=== PATIENT | female | born 1960 | race Caucasian/White ===

== ENCOUNTER 2016-05-04 10:42 | Inpatient (IN) | payer OTHER ==
[~2016-05-04] VITALS: Ht 157.5 cm; Wt 81.6 kg
[2016-05-04] MEDS ORDERED: LIDO:MAALOX:DONNATAL 1:1:1 15 ML SINGLE DOSE SWSW ONE (11:15)
[2016-05-04] MEDS ORDERED: PROCHLORPERAZINE 10 MG/2 ML VIAL. IV ONE (11:15)
[2016-05-04 11:41] LABS: BASO % 0 % (0-3); EOS % 1 % (0-3); HEMOGLOBIN 14.6 g/dL (12.0-15.5); LYMPH # 1.9 x10^3/uL (1.0-4.8); LYMPH % 22 % (24-48); MEAN CORPUSCULAR HEMOGLOBIN 30 pg (25-35); MEAN CORPUSCULAR HGB CONC 34 g/dL (31-37); MEAN CORPUSCULAR VOLUME 90 fL (79-100); MONO % 6 % (0-9); NEUT % 71 % (31-73); PLATELET COUNT 236 x10^3/uL (140-400); RED BLOOD COUNT 4.79 x10^6/uL (3.50-5.40); RED CELL DISTRIBUTION WIDTH 13.4 % (11.5-14.5); WHITE BLOOD COUNT 8.7 x10^3/uL (4.0-11.0)
[2016-05-04 11:42] LABS: BILIRUBIN,URINE NEGATIVE (NEG); GLUCOSE,URINE NEGATIVE (NEG); NITRITE,URINE NEGATIVE (NEG); PROTEIN,URINE NEGATIVE (NEG-TRACE); UROBILINOGEN,URINE 0.2 mg/dL (0.2 mg/dL)
[2016-05-04 11:48] LABS: CALCIUM 9.4 mg/dL (8.5-10.1); GFR 57.1; POTASSIUM 4.4 mmol/L (3.5-5.1)
[2016-05-04] MEDS: FENTANYL PF 100 MCG/2 ML VIAL. IV PRN ×3 (11:50→15:20)
[2016-05-04 12:00] LABS: ALBUMIN 3.9 g/dL (3.4-5.0); ALBUMIN/GLOBULIN RATIO 1.2 (1.0-1.7); BACTERIA,URINE FEW /HPF (0-FEW); SQUAMOUS EPITHELIAL CELL,UR FEW /LPF; TOTAL BILIRUBIN 0.5 mg/dL (0.2-1.0); TOTAL PROTEIN 7.1 g/dL (6.4-8.2)
[2016-05-04] MEDS ORDERED: IOHEXOL 300 MG/ML 75 ML VIAL IV ONE (12:00)
[2016-05-04] MEDS ORDERED: CONTRAST GIVEN MC PRN (12:15)
--- NOTE | 2016-05-04 12:42 | PHYS DOC ---
Past Medical History Past Medical History: Anxiety, Depression Past Surgical History: , Tubal ligation Additional Information: Nonsmoker Alcohol Use: Occasionally Drug Use: None Adult General Chief Complaint Chief Complaint: ABDOMINAL PAIN HPI HPI Patient is a 56 year old female who presents with epigastric and right upper quadrant pain for 12 days. She reports that she initially had diarrhea with light stools, approximately 6 episodes a day. She has not had the diarrhea for 3 days now. She continues to have nausea without vomiting and low-grade fever with chills. She has seen her PCP twice for the pain. She had an ultrasound of the right upper quadrant and labs drawn 4 days ago. She reports that there were no abnormalities found on these tests. Her doctor recommended starting her on Zantac for acid reflux. She states that she had mild, temporary relief after starting the Zantac. Is no longer helpful. She saw her PCP again yesterday and he recommended Prilosec OTC. She has taken this with very little relief. She also has oxycodone at home, which does not improve her pain. She reports that she has temporary relief of her pain after eating, usually within an hour, but the pain always returns. She denies any chest pain, shortness breath, or urinary symptoms. Her PCP is Dr. Cross. She does not have a GI specialist. Review of Systems Review of Systems Constitutional: Reports low-grade fever and chills. Eyes: Denies change in visual acuity, redness, or eye pain. [] HENT: Denies ear pain, nasal congestion or sore throat. [] Respiratory: Denies cough or shortness of breath. [] Cardiovascular: Denies chest pain, palpitations or edema. [] GI: Denies vomiting, bloody stools or diarrhea (resolved). Reports abdominal pain and nausea. : Denies dysuria, hematuria or urinary frequency. [] Musculoskeletal: Denies back pain or joint pain. [] Integument: Denies rash or skin lesions. [] Neurologic: Denies headache, focal weakness or sensory changes. [] Endocrine: Denies polyuria or polydipsia. [] Psych: Denies anxiety or depression. [] All systems reviewed and negative unless otherwise stated in the HPI. Current Medications Current Medications Current Medications Medications (Trade) Dose Ordered Sig/Katty Start Time Stop Time Status Last Admin Dose Admin Fentanyl Citrate (Fentanyl 2ml Vial) 50 mcg PRN Q15MIN PRN 05/04/16 11:15 05/05/16 11:14 05/04/16 15:20 50 MCG Info (Do NOT chart on this entry -- for MONITORING) 1 each PRN DAILY PRN 05/04/16 12:15 05/06/16 12:14 Iohexol (Omnipaque 300 Mg/ml) 75 ml 1X ONCE 05/04/16 12:00 05/04/16 12:03 DC 05/04/16 12:00 75 ML Multi-Ingredient Mouthwash/Gargle (Gi Cocktail Single Dose) 15 ml 1X ONCE 05/04/16 11:15 05/04/16 11:20 DC 05/04/16 11:50 15 ML Prochlorperazine Edisylate (Compazine) 5 mg 1X ONCE 05/04/16 11:15 05/04/16 11:20 DC 05/04/16 11:50 5 MG Allergies Allergies Allergies Coded Allergies Type Severity Reaction Last Updated Verified No Known Drug Allergies 05/04/16 No Physical Exam Physical Exam Constitutional: Well developed, well nourished, no acute distress, non-toxic appearance. [] HENT: Normocephalic, atraumatic, oropharynx moist. [] Eyes: PERRLA, EOMI, conjunctiva normal, no discharge. [] Neck: Normal range of motion, no tenderness, supple, no stridor. [] Cardiovascular: Heart rate regular rhythm, no murmur. [] Lungs & Thorax: Bilateral breath sounds clear to auscultation without wheezes, rales, or rhonchi. [] Abdomen: Bowel sounds normal, soft, epigastric and right upper quadrant tenderness, no masses, no pulsatile masses. [] Skin: Warm, dry, no erythema, no rash. [] Back: No midline tenderness, no CVA tenderness. [] Extremities: No tenderness, ROM intact, no edema. Distal pulses equal bilaterally. [] Neurologic: Alert and oriented X 3, normal motor function, normal sensory function, no focal deficits noted. [] Psychologic: Affect normal, judgement normal, mood normal. [] Current Patient Data Vital Signs Vital Signs Date Time Temp Pulse Resp B/P Pulse Ox O2 Delivery O2 Flow Rate FiO2 05/04/16 10:50 98.0 68 18 144/79 97 Room Air 98.0 Lab Values Laboratory Tests Test 05/04/16 11:25 05/04/16 11:30 Urine Opiates Screen Neg (NEG) Urine Methadone Screen Neg (NEG) Urine Barbiturates Neg (NEG) Urine Phencyclidine Screen Neg (NEG) Urine Amphetamine/Methamphetamine Neg (NEG) Urine Benzodiazepines Screen Neg (NEG) Urine Cocaine Screen Neg (NEG) Urine Cannabinoids Screen Neg (NEG) Urine Ethyl Alcohol Neg (NEG) White Blood Count 8.7x10^3/uL (4.0-11.0) Red Blood Count 4.79x10^6/uL (3.50-5.40) Hemoglobin 14.6g/dL (12.0-15.5) Hematocrit 43.0% (36.0-47.0) Mean Corpuscular Volume 90fL (79-100) Mean Corpuscular Hemoglobin 30pg (25-35) Mean Corpuscular Hemoglobin Concent 34g/dL (31-37) Red Cell Distribution Width 13.4% (11.5-14.5) Platelet Count 236x10^3/uL (140-400) Neutrophils (%) (Auto) 71% (31-73) Lymphocytes (%) (Auto) 22% (24-48) L Monocytes (%) (Auto) 6% (0-9) Eosinophils (%) (Auto) 1% (0-3) Basophils (%) (Auto) 0% (0-3) Neutrophils # (Auto) 6.2x10^3uL (1.8-7.7) Lymphocytes # (Auto) 1.9x10^3/uL (1.0-4.8) Monocytes # (Auto) 0.5x10^3/uL (0.0-1.1) Eosinophils # (Auto) 0.1x10^3/uL (0.0-0.7) Basophils # (Auto) 0.0x10^3/uL (0.0-0.2) Urine Collection Type Unknown Urine Color Yellow Urine Clarity Clear Urine pH 8.0 Urine Specific [place] 1.025 Urine Protein Negativemg/dL (NEG-TRACE) Urine Glucose (UA) Negativemg/dL (NEG) Urine Ketones (Stick) Tracemg/dL (NEG) Urine Blood Negative (NEG) Urine Nitrite Negative (NEG) Urine Bilirubin Negative (NEG) Urine Urobilinogen Dipstick 0.2mg/dL (0.2 mg/dL) Urine Leukocyte Esterase Negative (NEG) Urine RBC 3-5/HPF (0-2) Urine WBC 1-4/HPF (0-4) Urine Squamous Epithelial Cells Few/LPF Urine Bacteria Few/HPF (0-FEW) Urine Mucus Marked/LPF Sodium Level 140mmol/L (136-145) Potassium Level 4.4mmol/L (3.5-5.1) Chloride Level 105mmol/L (98-107) Carbon Dioxide Level 27mmol/L (21-32) Anion Gap 8 (6-14) Blood Urea Nitrogen 16mg/dL (7-20) Creatinine 1.0mg/dL (0.6-1.0) Estimated GFR (Cockcroft-Gault) 57.1 BUN/Creatinine Ratio 16 (6-20) Glucose Level 104mg/dL (70-99) H Calcium Level 9.4mg/dL (8.5-10.1) Total Bilirubin 0.5mg/dL (0.2-1.0) Aspartate Amino Transferase (AST) 17U/L (15-37) Alanine Aminotransferase (ALT) 34U/L (14-59) Alkaline Phosphatase 87U/L (46-116) Total Protein 7.1g/dL (6.4-8.2) Albumin 3.9g/dL (3.4-5.0) Albumin/Globulin Ratio 1.2 (1.0-1.7) Lipase 299U/L (73-393) Laboratory Tests 05/04/16 11:30 Laboratory Tests 05/04/16 11:30 EKG EKG [] Radiology/Procedures Radiology/Procedures REASON: ruq and epigastric pain PROCEDURE: ABD PELV W/ IV CONTRAST ONLY EXAM: CT abdomen/pelvis with contrast. HISTORY: Abdominal pain. TECHNIQUE: Computed tomography of the abdomen and pelvis was performed after the intravenous administration of 75 mL Omnipaque 300. COMPARISON: None. FINDINGS: Lung windows through the visualized portions of the bases reveal no abnormality. Bone windows reveal no suspicious lesions. Hypoattenuation of the hepatic parenchyma indicates at least moderate diffuse hepatic steatosis. There is focal effacement adjacent to the gallbladder fossa. There is a small 1 cm benign cyst laterally along the left kidney. The spleen, adrenal glands, pancreas and gallbladder are unremarkable. There are no pathologically enlarged lymph nodes. There is a partially calcified fibroid along the right aspect of the uterine fundus that measures 1.9 cm. A small umbilical hernia contains only fat. The appendix is not inflamed. There is no obstruction. IMPRESSION: 1. At least moderate diffuse hepatic steatosis. Correlate for hepatic inflammation as a cause of pain. 2. 1.9 cm partially calcified uterine fibroid. 3. Small umbilical hernia containing only fat. Course & Med Decision Making Course & Med Decision Making Pertinent Labs and Imaging studies reviewed. (See chart for details) The patient is a 56-year-old female who presents with 12 days of right upper quadrant and epigastric pain. She has had some outpatient testing done without definitive results. On exam, her abdomen is soft and nonsurgical with epigastric and right upper quadrant tenderness. There are no significant laboratory abnormalities. CT of the abdomen and pelvis shows hepatic steatosis, uterine fibroid, and small umbilical fat-containing hernia. None of these would explain her current pain. The patient's pain improved from 7/10 to 5/10 after GI cocktail and IV fentanyl. She states that she lives alone and is unable to tolerate her pain at this level. She states "I can't go home like this." Patient is admitted to the hospital for intractable abdominal pain under the hospitalist service by Dr. Franklin. She remained stable while in the emergency department. Dragon Disclaimer Dragon Disclaimer This electronic medical record was generated, in whole or in part, using a voice recognition dictation system. Departure Departure Impression: Primary Impression: Intractable abdominal pain Disposition: ADMITTED INPATIENT Admitting Physician: Yulisa Franklin Condition: STABLE Referrals: NIRAJ MICHAEL (PCP) COCO LEMONS May 04, 2016 12:42
--- NOTE | 2016-05-04 13:11 | RAD ---
EXAM: CT abdomen/pelvis with contrast. HISTORY: Abdominal pain. TECHNIQUE: Computed tomography of the abdomen and pelvis was performed after the intravenous administration of 75 mL Omnipaque 300. COMPARISON: None. FINDINGS: Lung windows through the visualized portions of the bases reveal no abnormality. Bone windows reveal no suspicious lesions. Hypoattenuation of the hepatic parenchyma indicates at least moderate diffuse hepatic steatosis. There is focal effacement adjacent to the gallbladder fossa. There is a small 1 cm benign cyst laterally along the left kidney. The spleen, adrenal glands, pancreas and gallbladder are unremarkable. There are no pathologically enlarged lymph nodes. There is a partially calcified fibroid along the right aspect of the uterine fundus that measures 1.9 cm. A small umbilical hernia contains only fat. The appendix is not inflamed. There is no obstruction. IMPRESSION: 1. At least moderate diffuse hepatic steatosis. Correlate for hepatic inflammation as a cause of pain. 2. 1.9 cm partially calcified uterine fibroid. 3. Small umbilical hernia containing only fat. *One or more of the following individualized dose reduction techniques were utilized for this examination: 1. Automated exposure control. 2. Adjustment of the mA and/or kV according to patient size. 3. Use of iterative reconstruction technique.
[2016-05-04 14:44] LABS: BARBITURATES NEG (NEG); BENZODIAZEPINES NEG (NEG); CANNABINOIDS NEG (NEG); COCAINE NEG (NEG); ETHANOL, URINE NEG (NEG); METHADONE NEG (NEG); OPIATES NEG (NEG); PHENCYCLIDINE NEG (NEG)
[2016-05-04] MEDS ORDERED: ONDANSETRON PF 4 MG/2 ML VIAL. IV PRN ×2 (15:00→15:15)
[2016-05-04] MEDS ORDERED: ACETAMINOPHEN 325 MG TABLET. PO PRN (15:15)
[2016-05-04] MEDS ORDERED: IV NORMAL SALINE 1000ML BAG 1,000 ML IV ONE (15:15)
--- NOTE | 2016-05-04 15:16 | PDOC1 ---
History and Physical Date of Admission Date of Admission 05/04/16 Identification/Chief Complaint Chief Complaint abd pain Problems: Source Source: Chart review, Patient History of Present Illness History of Present Illness 56yo F, no PMH except depression, comes for abd pain for 2 weeks. Pt takes aleeve 5 times per week for headache. She started to have N/V, epigastric and RUQ pain, constant, 8/10, no radiation. diarrhea watery, resolved for 3 days. no N/V now. low T 99, + chills. THE Pain is not better, fu with PCP , got some tests (not sure what are they, but was told US abd neg), took omeprozale for [address] here neg. Past Medical History Past Medical History depression Past Surgical History Past Surgical History: No pertinent history Family History Family History grandmother has gastric ulcer Social History Smoke: No ALCOHOL: social Drugs: None Current Problem List Problem List Problems Medical Problems: (1) Intractable abdominal pain Status: Acute Current Medications Current Medications Current Medications Medications (Trade) Dose Ordered Sig/Katty Start Time Stop Time Status Last Admin Dose Admin Fentanyl Citrate (Fentanyl 2ml Vial) 50 mcg PRN Q15MIN PRN 05/04/16 11:15 05/05/16 11:14 05/04/16 14:24 50 MCG Info (Do NOT chart on this entry -- for MONITORING) 1 each PRN DAILY PRN 05/04/16 12:15 05/06/16 12:14 Iohexol (Omnipaque 300 Mg/ml) 75 ml 1X ONCE 05/04/16 12:00 05/04/16 12:03 DC 05/04/16 12:00 75 ML Morphine Sulfate 4 mg PRN Q2HR PRN 05/04/16 15:00 05/05/16 14:59 UNV Multi-Ingredient Mouthwash/Gargle (Gi Cocktail Single Dose) 15 ml 1X ONCE 05/04/16 11:15 05/04/16 11:20 DC 05/04/16 11:50 15 ML Ondansetron HCl (Zofran) 4 mg PRN Q8HRS PRN 05/04/16 15:00 05/05/16 14:59 UNV Prochlorperazine Edisylate (Compazine) 5 mg 1X ONCE 05/04/16 11:15 05/04/16 11:20 DC 05/04/16 11:50 5 MG Allergies Allergies Allergies Coded Allergies Type Severity Reaction Last Updated Verified No Known Drug Allergies 05/04/16 No ROS Review of System CONSTITUTIONAL: No fever or chills EYES: No recent changes SKIN: No rash or itching CARDIOVASCULAR: No chest pain, syncope, palpitations, or edema RESPIRATORY: No SOB or cough GASTROINTESTINAL: No nausea, vomiting or abdominal pain NEUROLOGICAL: No headaches or weakness ENDOCRINE: No cold or heat intolerance GENITOURINARY: No urgency or frequency of urination MUSCULOSKELETAL: No back pain or joint pain LYMPHATICS: No enlarged lymph nodes PSYCHIATRIC: No anxiety or depression Physical Exam Physical Exam GEN.: No apparent distress. Alert and oriented. HEENT: Head is normocephalic, atraumatic NECK: Supple. LUNGS: Clear to auscultation. HEART: RRR, S1, S2 present. Peripheral pulses intact ABDOMEN: Soft, Positive bowel sounds. RUQ , epigastric area + tenderness EXTREMITIES: Without any cyanosis. NEUROLOGIC: Normal speech, normal tone PSYCHIATRIC: Normal affect, normal mood. SKIN: No ulcerations Vitals Vitals Vital Signs Date Time Temp Pulse Resp B/P Pulse Ox O2 Delivery O2 Flow Rate FiO2 05/04/16 14:28 74 18 141/74 98 Room Air 05/04/16 10:50 98.0 98.0 Labs Labs Laboratory Tests Test 05/04/16 11:25 05/04/16 11:30 Urine Opiates Screen Neg (NEG) Urine Methadone Screen Neg (NEG) Urine Barbiturates Neg (NEG) Urine Phencyclidine Screen Neg (NEG) Urine Amphetamine/Methamphetamine Neg (NEG) Urine Benzodiazepines Screen Neg (NEG) Urine Cocaine Screen Neg (NEG) Urine Cannabinoids Screen Neg (NEG) Urine Ethyl Alcohol Neg (NEG) White Blood Count 8.7x10^3/uL (4.0-11.0) Red Blood Count 4.79x10^6/uL (3.50-5.40) Hemoglobin 14.6g/dL (12.0-15.5) Hematocrit 43.0% (36.0-47.0) Mean Corpuscular Volume 90fL (79-100) Mean Corpuscular Hemoglobin 30pg (25-35) Mean Corpuscular Hemoglobin Concent 34g/dL (31-37) Red Cell Distribution Width 13.4% (11.5-14.5) Platelet Count 236x10^3/uL (140-400) Neutrophils (%) (Auto) 71% (31-73) Lymphocytes (%) (Auto) 22% (24-48) Monocytes (%) (Auto) 6% (0-9) Eosinophils (%) (Auto) 1% (0-3) Basophils (%) (Auto) 0% (0-3) Neutrophils # (Auto) 6.2x10^3uL (1.8-7.7) Lymphocytes # (Auto) 1.9x10^3/uL (1.0-4.8) Monocytes # (Auto) 0.5x10^3/uL (0.0-1.1) Eosinophils # (Auto) 0.1x10^3/uL (0.0-0.7) Basophils # (Auto) 0.0x10^3/uL (0.0-0.2) Urine Collection Type Unknown Urine Color Yellow Urine Clarity Clear Urine pH 8.0 Urine Specific [place] 1.025 Urine Protein Negativemg/dL (NEG-TRACE) Urine Glucose (UA) Negativemg/dL (NEG) Urine Ketones (Stick) Tracemg/dL (NEG) Urine Blood Negative (NEG) Urine Nitrite Negative (NEG) Urine Bilirubin Negative (NEG) Urine Urobilinogen Dipstick 0.2mg/dL (0.2 mg/dL) Urine Leukocyte Esterase Negative (NEG) Urine RBC 3-5/HPF (0-2) Urine WBC 1-4/HPF (0-4) Urine Squamous Epithelial Cells Few/LPF Urine Bacteria Few/HPF (0-FEW) Urine Mucus Marked/LPF Sodium Level 140mmol/L (136-145) Potassium Level 4.4mmol/L (3.5-5.1) Chloride Level 105mmol/L (98-107) Carbon Dioxide Level 27mmol/L (21-32) Anion Gap 8 (6-14) Blood Urea Nitrogen 16mg/dL (7-20) Creatinine 1.0mg/dL (0.6-1.0) Estimated GFR (Cockcroft-Gault) 57.1 BUN/Creatinine Ratio 16 (6-20) Glucose Level 104mg/dL (70-99) Calcium Level 9.4mg/dL (8.5-10.1) Total Bilirubin 0.5mg/dL (0.2-1.0) Aspartate Amino Transf (AST/SGOT) 17U/L (15-37) Alanine Aminotransferase (ALT/SGPT) 34U/L (14-59) Alkaline Phosphatase 87U/L (46-116) Total Protein 7.1g/dL (6.4-8.2) Albumin 3.9g/dL (3.4-5.0) Albumin/Globulin Ratio 1.2 (1.0-1.7) Lipase 299U/L (73-393) Laboratory Tests Test 05/04/16 11:25 05/04/16 11:30 Urine Opiates Screen Neg (NEG) Urine Methadone Screen Neg (NEG) Urine Barbiturates Neg (NEG) Urine Phencyclidine Screen Neg (NEG) Urine Amphetamine/Methamphetamine Neg (NEG) Urine Benzodiazepines Screen Neg (NEG) Urine Cocaine Screen Neg (NEG) Urine Cannabinoids Screen Neg (NEG) Urine Ethyl Alcohol Neg (NEG) White Blood Count 8.7x10^3/uL (4.0-11.0) Red Blood Count 4.79x10^6/uL (3.50-5.40) Hemoglobin 14.6g/dL (12.0-15.5) Hematocrit 43.0% (36.0-47.0) Mean Corpuscular Volume 90fL (79-100) Mean Corpuscular Hemoglobin 30pg (25-35) Mean Corpuscular Hemoglobin Concent 34g/dL (31-37) Red Cell Distribution Width 13.4% (11.5-14.5) Platelet Count 236x10^3/uL (140-400) Neutrophils (%) (Auto) 71% (31-73) Lymphocytes (%) (Auto) 22% (24-48) Monocytes (%) (Auto) 6% (0-9) Eosinophils (%) (Auto) 1% (0-3) Basophils (%) (Auto) 0% (0-3) Neutrophils # (Auto) 6.2x10^3uL (1.8-7.7) Lymphocytes # (Auto) 1.9x10^3/uL (1.0-4.8) Monocytes # (Auto) 0.5x10^3/uL (0.0-1.1) Eosinophils # (Auto) 0.1x10^3/uL (0.0-0.7) Basophils # (Auto) 0.0x10^3/uL (0.0-0.2) Urine Collection Type Unknown Urine Color Yellow Urine Clarity Clear Urine pH 8.0 Urine Specific [place] 1.025 Urine Protein Negativemg/dL (NEG-TRACE) Urine Glucose (UA) Negativemg/dL (NEG) Urine Ketones (Stick) Tracemg/dL (NEG) Urine Blood Negative (NEG) Urine Nitrite Negative (NEG) Urine Bilirubin Negative (NEG) Urine Urobilinogen Dipstick 0.2mg/dL (0.2 mg/dL) Urine Leukocyte Esterase Negative (NEG) Urine RBC 3-5/HPF (0-2) Urine WBC 1-4/HPF (0-4) Urine Squamous Epithelial Cells Few/LPF Urine Bacteria Few/HPF (0-FEW) Urine Mucus Marked/LPF Sodium Level 140mmol/L (136-145) Potassium Level 4.4mmol/L (3.5-5.1) Chloride Level 105mmol/L (98-107) Carbon Dioxide Level 27mmol/L (21-32) Anion Gap 8 (6-14) Blood Urea Nitrogen 16mg/dL (7-20) Creatinine 1.0mg/dL (0.6-1.0) Estimated GFR (Cockcroft-Gault) 57.1 BUN/Creatinine Ratio 16 (6-20) Glucose Level 104mg/dL (70-99) Calcium Level 9.4mg/dL (8.5-10.1) Total Bilirubin 0.5mg/dL (0.2-1.0) Aspartate Amino Transf (AST/SGOT) 17U/L (15-37) Alanine Aminotransferase (ALT/SGPT) 34U/L (14-59) Alkaline Phosphatase 87U/L (46-116) Total Protein 7.1g/dL (6.4-8.2) Albumin 3.9g/dL (3.4-5.0) Albumin/Globulin Ratio 1.2 (1.0-1.7) Lipase 299U/L (73-393) VTE Prophylaxis Ordered VTE Prophylaxis Devices: Yes VTE Pharmacological Prophylaxi: No Assessment/Plan Assessment/Plan 1. abd pain 2/2 gi ulcer vs. gastritis likely with h/o NSAIDS 2. Depression plan: 1. gi consult, may need EGD 2. PROTONIX daily 3. need home meds pain control JOON ARAUZ MD May 04, 2016 15:16
--- NOTE | 2016-05-04 16:24 | PDOC2 ---
GI CONSULT Reason For Consult: Abd pain HPI: HPI: 56 y/o female admitted through the ER. Reports 12 days h/o illness which began w/ headache a nausea, progressed to loose stools (6 daily - normally has 1), then w/ fever/chills, and then epigastric pain. Denies precipitating events. Restarted Prozac about 2 weeks ago. Stools have returned to normal. Epigastric pain can be rated 7-8/10 at it's worst. Eating actually helps pain a bit. Has seen her PCP twice, reports normal abd US at [place] this week. Tried three doses of Zantac and two doses of Prilosec, unclear if helped. Decided to come to ER w/ concern for ongoing pain and because she lives alone. Has been taking Advil and ibuprofen for fever, usually only takes NSAIDs PRN. No reflux/heartburn or previous EGD. Recalls previous colonoscopy at [facility] ~7 years ago, was advised to follow-up in [address] w/ hepatic steatosis, uterine fibroid, fat-containing umbilical hernia. Restarted on PPI here. PMH: PMH: depression, , tubal ligation, colon polyps FH: Family History: Other (grandmother had PUD, eventually stomach cancer) Social History: Smoke: No ALCOHOL: rare Drugs: None ROS: GEN: +fevers, sweats HEENT: Denies blurred vision, sore throat CV: Denies chest pain RESP: Denies shortness of air, cough GI: Per HPI : Denies hematuria, dysuria ENDO: Denies weight changes NEURO: Denies confusion, dizziness MSK: Denies weakness, joint pain/swelling SKIN: Denies jaundice, pruritus VItals: Vitals: Vital Signs Date Time Temp Pulse Resp B/P Pulse Ox O2 Delivery O2 Flow Rate FiO2 05/04/16 14:28 74 18 141/74 98 Room Air 05/04/16 10:50 98.0 98.0 Labs: Labs: Laboratory Tests Test 05/04/16 11:25 05/04/16 11:30 Urine Opiates Screen Neg (NEG) Urine Methadone Screen Neg (NEG) Urine Barbiturates Neg (NEG) Urine Phencyclidine Screen Neg (NEG) Urine Amphetamine/Methamphetamine Neg (NEG) Urine Benzodiazepines Screen Neg (NEG) Urine Cocaine Screen Neg (NEG) Urine Cannabinoids Screen Neg (NEG) Urine Ethyl Alcohol Neg (NEG) White Blood Count 8.7x10^3/uL (4.0-11.0) Red Blood Count 4.79x10^6/uL (3.50-5.40) Hemoglobin 14.6g/dL (12.0-15.5) Hematocrit 43.0% (36.0-47.0) Mean Corpuscular Volume 90fL (79-100) Mean Corpuscular Hemoglobin 30pg (25-35) Mean Corpuscular Hemoglobin Concent 34g/dL (31-37) Red Cell Distribution Width 13.4% (11.5-14.5) Platelet Count 236x10^3/uL (140-400) Neutrophils (%) (Auto) 71% (31-73) Lymphocytes (%) (Auto) 22% (24-48) Monocytes (%) (Auto) 6% (0-9) Eosinophils (%) (Auto) 1% (0-3) Basophils (%) (Auto) 0% (0-3) Neutrophils # (Auto) 6.2x10^3uL (1.8-7.7) Lymphocytes # (Auto) 1.9x10^3/uL (1.0-4.8) Monocytes # (Auto) 0.5x10^3/uL (0.0-1.1) Eosinophils # (Auto) 0.1x10^3/uL (0.0-0.7) Basophils # (Auto) 0.0x10^3/uL (0.0-0.2) Urine Collection Type Unknown Urine Color Yellow Urine Clarity Clear Urine pH 8.0 Urine Specific [place] 1.025 Urine Protein Negativemg/dL (NEG-TRACE) Urine Glucose (UA) Negativemg/dL (NEG) Urine Ketones (Stick) Tracemg/dL (NEG) Urine Blood Negative (NEG) Urine Nitrite Negative (NEG) Urine Bilirubin Negative (NEG) Urine Urobilinogen Dipstick 0.2mg/dL (0.2 mg/dL) Urine Leukocyte Esterase Negative (NEG) Urine RBC 3-5/HPF (0-2) Urine WBC 1-4/HPF (0-4) Urine Squamous Epithelial Cells Few/LPF Urine Bacteria Few/HPF (0-FEW) Urine Mucus Marked/LPF Sodium Level 140mmol/L (136-145) Potassium Level 4.4mmol/L (3.5-5.1) Chloride Level 105mmol/L (98-107) Carbon Dioxide Level 27mmol/L (21-32) Anion Gap 8 (6-14) Blood Urea Nitrogen 16mg/dL (7-20) Creatinine 1.0mg/dL (0.6-1.0) Estimated GFR (Cockcroft-Gault) 57.1 BUN/Creatinine Ratio 16 (6-20) Glucose Level 104mg/dL (70-99) Calcium Level 9.4mg/dL (8.5-10.1) Total Bilirubin 0.5mg/dL (0.2-1.0) Aspartate Amino Transf (AST/SGOT) 17U/L (15-37) Alanine Aminotransferase (ALT/SGPT) 34U/L (14-59) Alkaline Phosphatase 87U/L (46-116) Total Protein 7.1g/dL (6.4-8.2) Albumin 3.9g/dL (3.4-5.0) Albumin/Globulin Ratio 1.2 (1.0-1.7) Lipase 299U/L (73-393) Allergies: Coded Allergies: No Known Drug Allergies (Unverified , 05/04/16) Medications: Current Medications Medications (Trade) Dose Ordered Sig/Katty Route PRN Reason Start Time Stop Time Status Last Admin Dose Admin Multi-Ingredient Mouthwash/Gargle (Gi Cocktail Single Dose) 15 ml 1X ONCE SWSW 05/04/16 11:15 05/04/16 11:20 DC 05/04/16 11:50 Fentanyl Citrate (Fentanyl 2ml Vial) 50 mcg PRN Q15MIN PRN IV PAIN GREATER THAN 05/0505/04/16 11:15 05/05/16 11:14 05/04/16 15:20 Prochlorperazine Edisylate (Compazine) 5 mg 1X ONCE IV 05/04/16 11:15 05/04/16 11:20 DC 05/04/16 11:50 Iohexol (Omnipaque 300 Mg/ml) 75 ml 1X ONCE IV 05/04/16 12:00 05/04/16 12:03 DC 05/04/16 12:00 Imaging: Imaging: CT A/P w/ IV contrast IMPRESSION: 1. At least moderate diffuse hepatic steatosis. Correlate for hepatic inflammation as a cause of pain. 2. 1.9 cm partially calcified uterine fibroid. 3. Small umbilical hernia containing only fat. PE: GEN: NAD, pleasant HEENT: Atraumatic, PERRL LUNGS: CTAB HEART: RRR ABD: NABS, S/ND, epigastric to RUQ tenderness EXTREMITY: No edema SKIN: No rashes, no jaundice NEURO/PSYCH: A & O 3 A/P: A/P: Epigastric/RUQ pain -initially began w/ nausea, loose stools, fever/chills -pain can be severe, better w/ eating -reports normal abd US @ [place], CT here as above -has been taking NSAIDs CRC screen -recalls previously colonoscopy at age 49, advised to follow-up in 5 years -- D/w Dr. Nichole - plan for EGD tomorrow a.m. r/o PUD. NPO at midnight. MIRELLA FLORES May 04, 2016 16:24
--- NOTE | 2016-05-04 16:36 | ACF ---
Admission Forms Criteria ABDOMINAL PAIN Clinical Indications for Admission to Inpatient Care (Place 'X' for any and all applicable criteria): Admission is indicated for ANY ONE of the following(1)(2)(3)(4)(5): [X]I. Inpatient admission required rather than observation care (Also use Abdominal Pain: Observation Care, as appropriate) because of ANY ONE of the following: [X]a) Severe pain requiring acute inpatient management [ ]b) Identification of etiology/finding that requires inpatient care (eg, aortic dissection, free air) [ ]c) Absent bowel sounds with complete ileus(6) [ ]d) Suspected toxic megacolon [ ]e) Severe electrolyte abnormalities requiring inpatient care [ ]f) High fever or infection requiring inpatient admission as indicated by ANY ONE of following(7)(8): [ ] i) Appropriate outpatient or observational care antimicrobial treatment unavailable, not effective, or not feasible [ ] ii) Documented bacteremia [ ] iii) Temperature > 104.9 degrees F (oral) [ ] iv) T >103.1 F (oral) or < 96.8 F(rectal) that does not respond to all emergency treatment measures [ ]g) Signs of intestinal obstruction [B] [ ]h) Hemodynamic instability [ ]i) IV fluid to replace significant ongoing losses (greater than 3 L/m2 per day) (12)(13) [ ]j) Percutaneous or open drainage (eg, abscess, biliary tract ) procedures [ ]k) Parenteral nutrition regimen that must be implemented on inpatient basis [ ]l) Other condition,treatment or monitoring requiring inpatient admission. [ ]II. Peritoneal signs present [ ]III. Surgery needed that cannot be performed on an ambulatory basis. [ ]IV. Evaluation requires patient to not eat or drink for extended period ( eg, more than 24 hours). [ ]V. Contraindications and/or Inappropriate clinical situations for Observational Care in patients with abdominal pain, when ANY ONE of the following is required: [ ]a) Thorough evaluation is required to prevent catastrophic events due to delays in diagnosing (e.g.Mesenteric ischemia) 1,3 [ ]b) Patient with severe pathology or with chronic symptoms unlikely to improve in the ED stay (3) [ ]. General contraindications and/or Inappropriate clinical situations for Observational Care in patients with abdominal pain, when ANY ONE of the following is required: [ ]a) Prediction of prolongation of LOS based on ANY ONE of the following may be considered as a contraindication for observational care 2, 3, 4, 5, 6, 7, 8, 9, 10, 11 [ ]i) Age > 65 yrs. [ ]ii) Patient arriving by ambulance [ ]iii) Patient with high acuity [ ]iv) Patient requiring vital sign monitoring [ ]v) Patient on IV medication [ ]b) Systolic blood pressures 180mmHg 3,12 [ ]c) Patient with altered mental status including delirium and other alteration of consciousness, (3) [ ]d) Patient whose discharge disposition will be to a jail home or rehabilitation home should not be managed in Emergency Department Observation Unit. CMS rule requires 3 days hospital stay before such placement.3,13 [ ]e) Patient with failure to thrive due to broad array of etiologies 3,16,17 [ ]f) Inability to ambulate 3,14 Extended stay beyond goal length of stay may be needed for(2)(3): [ ]a) Persistent abdominal pain with suspected intra-abdominal process [ ]b) Diagnosed condition requiring continued stay (e.g., pancreatitis, complicated diverticulitis) [ ]c) Surgery (e.g., colectomy) The original [facility] content created by [employer] has been revised. The portions of the content which have been revised are identified through the use of italic text or in bold, and [facility] has neither reviewed nor approved the modified material.All other unmodified content is copyright [employer]. Please see references footnoted in the original [facility] edition 2016 Admission Criteria Met?: Yes GIOVANY MAN May 04, 2016 16:36
[2016-05-04] MEDS: IV 1/2 NORMAL SALINE 1,000 ML IV SCH (17:30)
[2016-05-04] MEDS: MORPHINE SULFATE 2 MG/ML DISP.SYRIN. IV PRN (18:07)
[2016-05-04] MEDS: PANTOPRAZOLE 40 MG TABLET. PO SCH (18:08)
[2016-05-04 19:00] VITALS: BP 125/73
[2016-05-04] MEDS ORDERED: FLUO20CA16 PO (19:01)
[2016-05-04] MEDS: MORPHINE SULFATE 4 MG/ML DISP.SYRIN. IV PRN (22:26)
[2016-05-04 23:00] VITALS: BP 119/64
[2016-05-05 03:00] VITALS: BP 98/61
[2016-05-05] MEDS: MORPHINE SULFATE 4 MG/ML DISP.SYRIN. IV PRN (04:07)
[2016-05-05] MEDS: IV 1/2 NORMAL SALINE 1,000 ML IV SCH (04:17)
[2016-05-05 07:00] VITALS: BP 116/66
[2016-05-05] MEDS ORDERED: PROPOFOL 20 ML IV ONE (09:00)
--- NOTE | 2016-05-05 09:21 | PDOC4 ---
Operative Note Operative Note EGD Meds Propofol 130 mg iv Pre-op dx epigastric abdominal pain Post-op dx duodenitis non-erosive gastritis Imp abd pain -etiology to be determined. Chronic cholecystitis to be assessed with THELMA Garcia MD May 05, 2016 09:21
[2016-05-05 11:00] VITALS: BP 116/66
[2016-05-05] MEDS ORDERED: SINCALIDE 1.6 MCG in IV NORMAL SALINE 50ML 30 ML IV ONE (12:00)
[2016-05-05] MEDS: PANTOPRAZOLE 40 MG TABLET. PO SCH ×2 (13:18→16:30)
--- NOTE | 2016-05-05 13:55 | RAD ---
EXAM: Nuclear hepatobiliary scan with ejection fraction. HISTORY: Abdominal pain/nausea. TECHNIQUE: Serial static images are obtained of the liver and biliary system in a frontal projection following IV administration of 5.5 mCi of technetium-99m Choletec. After filling of the gallbladder, 1.6 mcg of sincalide were infused over 30 minutes and dynamic imaging continued over this period. The gallbladder ejection fraction was calculated. FINDINGS: There is prompt hepatic clearance of tracer from the blood pool. There is homogeneous distribution throughout the liver. There is normal filling of the gallbladder and normal emptying into the biliary system and small bowel. The gallbladder ejection fraction is 93.8% (normal >35%). IMPRESSION: 1. Normal gallbladder ejection fraction.
[2016-05-05 15:00] VITALS: BP 129/72
[2016-05-05] MEDS ORDERED: LIDO:MAALOX:DONNATAL 1:1:1 15 ML SINGLE DOSE SWSW ONE (15:15)
--- NOTE | 2016-05-05 15:16 | PDOC ---
PROGRESS NOTES Chief Complaint Chief Complaint acute abd pain 2/2 gi ulcer or. gastritis abd pain exacerbated w/ NSAIDS Depression History of Present Illness History of Present Illness pain with palpation poor PO intake wants to continue IV fluid, change PPI to BID Vitals Vitals Vital Signs Date Time Temp Pulse Resp B/P Pulse Ox O2 Delivery O2 Flow Rate FiO2 05/05/16 15:00 98.3 68 18 129/72 92 Room Air 98.3 Physical Exam General: Alert, Oriented X3, Cooperative, mild distress (abd pain) Heart: Regular rate, No murmurs Lungs: Clear, Wheezing Abdomen: Normal bowel sounds, Soft (tender mid to right epigastrum) Extremities: No clubbing, No cyanosis Skin: No breakdown Assessment and Plan Assessmemt and Plan HIDA scan neg increase PPI to BID DC when able to catracho full liquid Problems Medical Problems: (1) Intractable abdominal pain Status: Acute Problems: Comment Review of Relevant I have reviewed the following items harsh (where applicable) has been applied. Labs Laboratory Tests Test 05/04/16 11:25 05/04/16 11:30 Urine Opiates Screen Neg (NEG) Urine Methadone Screen Neg (NEG) Urine Barbiturates Neg (NEG) Urine Phencyclidine Screen Neg (NEG) Urine Amphetamine/Methamphetamine Neg (NEG) Urine Benzodiazepines Screen Neg (NEG) Urine Cocaine Screen Neg (NEG) Urine Cannabinoids Screen Neg (NEG) Urine Ethyl Alcohol Neg (NEG) White Blood Count 8.7x10^3/uL (4.0-11.0) Red Blood Count 4.79x10^6/uL (3.50-5.40) Hemoglobin 14.6g/dL (12.0-15.5) Hematocrit 43.0% (36.0-47.0) Mean Corpuscular Volume 90fL (79-100) Mean Corpuscular Hemoglobin 30pg (25-35) Mean Corpuscular Hemoglobin Concent 34g/dL (31-37) Red Cell Distribution Width 13.4% (11.5-14.5) Platelet Count 236x10^3/uL (140-400) Neutrophils (%) (Auto) 71% (31-73) Lymphocytes (%) (Auto) 22% (24-48) Monocytes (%) (Auto) 6% (0-9) Eosinophils (%) (Auto) 1% (0-3) Basophils (%) (Auto) 0% (0-3) Neutrophils # (Auto) 6.2x10^3uL (1.8-7.7) Lymphocytes # (Auto) 1.9x10^3/uL (1.0-4.8) Monocytes # (Auto) 0.5x10^3/uL (0.0-1.1) Eosinophils # (Auto) 0.1x10^3/uL (0.0-0.7) Basophils # (Auto) 0.0x10^3/uL (0.0-0.2) Urine Collection Type Unknown Urine Color Yellow Urine Clarity Clear Urine pH 8.0 Urine Specific [place] 1.025 Urine Protein Negativemg/dL (NEG-TRACE) Urine Glucose (UA) Negativemg/dL (NEG) Urine Ketones (Stick) Tracemg/dL (NEG) Urine Blood Negative (NEG) Urine Nitrite Negative (NEG) Urine Bilirubin Negative (NEG) Urine Urobilinogen Dipstick 0.2mg/dL (0.2 mg/dL) Urine Leukocyte Esterase Negative (NEG) Urine RBC 3-5/HPF (0-2) Urine WBC 1-4/HPF (0-4) Urine Squamous Epithelial Cells Few/LPF Urine Bacteria Few/HPF (0-FEW) Urine Mucus Marked/LPF Sodium Level 140mmol/L (136-145) Potassium Level 4.4mmol/L (3.5-5.1) Chloride Level 105mmol/L (98-107) Carbon Dioxide Level 27mmol/L (21-32) Anion Gap 8 (6-14) Blood Urea Nitrogen 16mg/dL (7-20) Creatinine 1.0mg/dL (0.6-1.0) Estimated GFR (Cockcroft-Gault) 57.1 BUN/Creatinine Ratio 16 (6-20) Glucose Level 104mg/dL (70-99) Calcium Level 9.4mg/dL (8.5-10.1) Total Bilirubin 0.5mg/dL (0.2-1.0) Aspartate Amino Transf (AST/SGOT) 17U/L (15-37) Alanine Aminotransferase (ALT/SGPT) 34U/L (14-59) Alkaline Phosphatase 87U/L (46-116) Total Protein 7.1g/dL (6.4-8.2) Albumin 3.9g/dL (3.4-5.0) Albumin/Globulin Ratio 1.2 (1.0-1.7) Lipase 299U/L (73-393) Medications Current Medications Multi-Ingredient Mouthwash/Gargle (Gi Cocktail Single Dose) 15 ml 1X ONCE SWSW Last administered on 05/04/16 11:50; Start 05/04/16 at 11:15; Stop 05/04/16 at 11:20; Status DC Fentanyl Citrate (Fentanyl 2ml Vial) 50 mcg PRN Q15MIN PRN IV PAIN GREATER THAN 3/10 Last administered on 05/04/16 15:20; Start 05/04/16 at 11:15; Stop 12/12 at 11:14; Status DC Prochlorperazine Edisylate (Compazine) 5 mg 1X ONCE IV Last administered on 11:50; Start 05/04/16 at 11:15; Stop 05/04/16 at 11:20; Status DC Iohexol (Omnipaque 300 Mg/ml) 75 ml 1X ONCE IV Last administered on 05/04/16 12:00; Start 05/04/16 at 12:00; Stop 05/04/16 at 12:03; Status DC Info (Do NOT chart on this entry -- for MONITORING) 1 each PRN DAILY PRN MC SEE COMMENTS; Start 05/04/16 at 12:15; Stop 05/06/16 at 12:14 Ondansetron HCl (Zofran) 4 mg PRN Q8HRS PRN IV NAUSEA/VOMITING Last administered on 05/05/16 04:08; Start 05/04/16 at 15:00; Stop 05/05/16 at 14:59 ; Status DC Morphine Sulfate 4 mg PRN Q2HR PRN IV PAIN Last administered on 05/05/16 04:07 ; Start 05/04/16 at 15:00; Stop 05/05/16 at 14:59; Status DC Acetaminophen (Tylenol) 650 mg PRN Q6HRS PRN PO MILD PAIN / TEMP; Start at 15:15 Ondansetron HCl (Zofran) 4 mg PRN Q6HRS PRN IV NAUSEA/VOMITING; Start 05/04/16 at 15:15 Pantoprazole Sodium (Protonix) 40 mg DAILYAC PO Last administered on 05/05/16 13:18; Start 05/04/16 at 16:30; Stop 05/05/16 at 15:07; Status DC Acetaminophen/ Hydrocodone Bitart (Lortab 5/325) 1 tab PRN Q4HRS PRN PO PAIN; Start 05/04/16 at 15:15 Morphine Sulfate 2 mg 2 mg PRN Q2HR PRN IV PAIN Last administered on 05/04/16 18:07; Start 05/04/16 at 15:15 Sodium Chloride 1,000 ml @ 75 mls/hr 1X ONCE IV Last administered on 18:08; Start 05/04/16 at 15:15; Stop 05/05/16 at 04:34; Status DC Sodium Chloride 1,000 ml @ 75 mls/hr [id number] IV Last administered on 04:17; Start 05/04/16 at 17:30 Propofol 20 ml @ As Directed STK-MED ONCE IV ; Start 05/05/16 at 09:00; Stop 12/12 at 09:01; Status DC Sincalide/Sodium Chloride (Kinevac/Iv Sodium Chloride 0.9% 50ml) 30 ml @ 0 mls/ hr 1X ONCE IV Last administered on 05/05/16 12:29; Start 05/05/16 at 12:00; Stop 05/05/16 at 12:01; Status DC Multi-Ingredient Mouthwash/Gargle (Gi Cocktail Single Dose) 15 ml 1X ONCE SWSW ; Start 05/05/16 at 15:15; Stop 05/05/16 at 15:16 Pantoprazole Sodium (Protonix) 40 mg BID PO ; Start 05/05/16 at 21:00; Status UNV Active Scripts Active Reported Prozac (Fluoxetine Hcl) 20 Mg Capsule 1 Cap PO DAILY Vitals/I & O Vital Sign - Last 24 Hours 05/04/16 05/04/16 05/04/16 05/04/16 16:48 18:07 18:46 19:00 Temp 98.0 98.0 Pulse 84 Resp 18 B/P 125/73 Pulse Ox 97 O2 Delivery Room Air Room Air Room Air Room Air 05/04/16 05/05/16 05/05/16 05/05/16 23:00 03:00 07:00 07:38 Temp 98.5 98.3 97.6 97.0 98.5 98.3 97.6 97.0 Pulse 67 51 66 55 Resp 18 18 16 20 B/P 119/64 98/61 116/66 Pulse Ox 93 95 94 94 O2 Delivery Room Air Room Air Room Air 05/05/16 05/05/16 05/05/16 05/05/16 09:25 09:35 09:45 09:55 Temp 97.0 97.0 97.0 97.0 97.0 97.0 97.0 97.0 Pulse 55 54 56 56 Resp 20 20 20 20 B/P 109/59 126/74 125/68 118/76 Pulse Ox 97 98 99 99 O2 Delivery Room Air Room Air Room Air Room Air 05/05/16 05/05/16 11:00 15:00 Temp 98.3 98.3 98.3 98.3 Pulse 55 68 Resp 16 18 B/P 116/66 129/72 Pulse Ox 95 92 O2 Delivery Room Air Room Air Intake and Output 05/04/16 05/04/16 05/05/16 15:00 23:00 07:00 Intake Total 250 ml 250 ml Balance 250 ml 250 ml MORGAN CORRALES MD May 05, 2016 15:16
[2016-05-05] MEDS: MORPHINE SULFATE 2 MG/ML DISP.SYRIN. IV PRN (18:48)
[2016-05-05 19:00] VITALS: BP 109/61
[2016-05-05 23:00] VITALS: BP 112/76
[2016-05-06] MEDS: IV 1/2 NORMAL SALINE 1,000 ML IV SCH ×3 (02:08→23:09)
[2016-05-06 03:00] VITALS: BP 124/61
[2016-05-06] MEDS: PANTOPRAZOLE 40 MG TABLET. PO SCH ×2 (06:27→15:53)
[2016-05-06] MEDS: HYDROCODONE/APAP 5/325MG TABLET. PO PRN ×2 (06:30→13:12)
[2016-05-06 07:16] VITALS: BP 121/61
[2016-05-06] MEDS: MORPHINE SULFATE 2 MG/ML DISP.SYRIN. IV PRN (10:06)
[2016-05-06 11:05] VITALS: BP 142/64
[2016-05-06] MEDS: LORAZEPAM 1 MG TABLET. PO PRN (11:42)
--- NOTE | 2016-05-06 12:41 | PDOC ---
PROGRESS NOTES Chief Complaint Chief Complaint acute abd pain 2/2 gi ulcer or. gastritis abd pain exacerbated w/ NSAIDS Depression, anxiety, History of Present Illness History of Present Illness had missed prozac, anxiety up better with ativan this AM, would like to continue PRN pain with palpation poor PO intake try Full liquids Vitals Vitals Vital Signs Date Time Temp Pulse Resp B/P Pulse Ox O2 Delivery O2 Flow Rate FiO2 05/06/16 11:05 99.1 62 18 142/64 98 Room Air 99.1 Physical Exam General: Alert, Oriented X3, Cooperative, mild distress (abd pain) Heart: Regular rate, No murmurs Lungs: Clear, Wheezing Abdomen: Normal bowel sounds, Soft (tender mid to right epigastrum) Extremities: No clubbing, No cyanosis Skin: No breakdown Assessment and Plan Assessmemt and Plan cont current GI cocktail PRN Problems Medical Problems: (1) Intractable abdominal pain Status: Acute Problems: Comment Review of Relevant I have reviewed the following items harsh (where applicable) has been applied. Medications Current Medications Multi-Ingredient Mouthwash/Gargle (Gi Cocktail Single Dose) 15 ml 1X ONCE SWSW Last administered on 05/04/16 11:50; Start 05/04/16 at 11:15; Stop 05/04/16 at 11:20; Status DC Fentanyl Citrate (Fentanyl 2ml Vial) 50 mcg PRN Q15MIN PRN IV PAIN GREATER THAN 3/10 Last administered on 05/04/16 15:20; Start 05/04/16 at 11:15; Stop 12/12 at 11:14; Status DC Prochlorperazine Edisylate (Compazine) 5 mg 1X ONCE IV Last administered on 11:50; Start 05/04/16 at 11:15; Stop 05/04/16 at 11:20; Status DC Iohexol (Omnipaque 300 Mg/ml) 75 ml 1X ONCE IV Last administered on 05/04/16 12:00; Start 05/04/16 at 12:00; Stop 05/04/16 at 12:03; Status DC Info (Do NOT chart on this entry -- for MONITORING) 1 each PRN DAILY PRN MC SEE COMMENTS; Start 05/04/16 at 12:15; Stop 05/06/16 at 12:14; Status DC Ondansetron HCl (Zofran) 4 mg PRN Q8HRS PRN IV NAUSEA/VOMITING Last administered on 05/05/16 04:08; Start 05/04/16 at 15:00; Stop 05/05/16 at 14:59 ; Status DC Morphine Sulfate 4 mg PRN Q2HR PRN IV PAIN Last administered on 05/05/16 04:07 ; Start 05/04/16 at 15:00; Stop 05/05/16 at 14:59; Status DC Acetaminophen (Tylenol) 650 mg PRN Q6HRS PRN PO MILD PAIN / TEMP; Start at 15:15 Ondansetron HCl (Zofran) 4 mg PRN Q6HRS PRN IV NAUSEA/VOMITING; Start 05/04/16 at 15:15 Pantoprazole Sodium (Protonix) 40 mg DAILYAC PO Last administered on 05/05/16 13:18; Start 05/04/16 at 16:30; Stop 05/05/16 at 15:07; Status DC Acetaminophen/ Hydrocodone Bitart (Lortab 5/325) 1 tab PRN Q4HRS PRN PO MODERATE - SEVERE PAIN Last administered on 05/06/16 06:30; Start 05/04/16 at 15 :15 Morphine Sulfate 2 mg 2 mg PRN Q2HR PRN IV PAIN Last administered on 05/06/16 10:06; Start 05/04/16 at 15:15 Sodium Chloride 1,000 ml @ 75 mls/hr 1X ONCE IV Last administered on 18:08; Start 05/04/16 at 15:15; Stop 05/05/16 at 04:34; Status DC Sodium Chloride 1,000 ml @ 75 mls/hr [id number] IV Last administered on 02:08; Start 05/04/16 at 17:30 Propofol 20 ml @ As Directed STK-MED ONCE IV ; Start 05/05/16 at 09:00; Stop 12/12 at 09:01; Status DC Sincalide/Sodium Chloride (Kinevac/Iv Sodium Chloride 0.9% 50ml) 30 ml @ 0 mls/ hr 1X ONCE IV Last administered on 05/05/16 12:29; Start 05/05/16 at 12:00; Stop 05/05/16 at 12:01; Status DC Multi-Ingredient Mouthwash/Gargle (Gi Cocktail Single Dose) 15 ml 1X ONCE SWSW Last administered on 05/05/16 16:05; Start 05/05/16 at 15:15; Stop 05/05/16 at 15:16; Status DC Pantoprazole Sodium (Protonix) 40 mg BIDAC PO Last administered on 05/06/16 06 :27; Start 05/05/16 at 16:30 Lorazepam (Ativan) 1 mg PRN Q6HRS PRN PO ANXIETY / AGITATION Last administered on 05/06/16 11:42; Start 05/06/16 at 11:15 Active Scripts Active Reported Prozac (Fluoxetine Hcl) 20 Mg Capsule 1 Cap PO DAILY Vitals/I & O Vital Sign - Last 24 Hours 05/05/16 05/05/16 05/05/16 05/05/16 15:00 18:48 19:00 19:18 Temp 98.3 98.2 98.3 98.2 Pulse 68 60 Resp B/P 129/72 109/61 Pulse Ox 92 92 95 O2 Delivery Room Air Room Air Room Air Room Air 05/05/16 05/05/16 05/06/16 05/06/16 20:00 23:00 03:00 06:30 Temp 98.8 98.6 98.8 98.6 Pulse 86 68 Resp 18 18 16 B/P 112/76 124/61 Pulse Ox 95 98 O2 Delivery Room Air Room Air Room Air Room Air 05/06/16 05/06/16 05/06/16 07:16 10:06 11:05 Temp 98.6 99.1 98.6 99.1 Pulse 65 62 Resp 18 18 B/P 121/61 142/64 Pulse Ox 98 98 O2 Delivery Room Air Room Air Room Air MORGAN CORRALES MD May 06, 2016 12:41
[2016-05-06] MEDS ORDERED: LIDO:MAALOX:DONNATAL 1:1:1 15 ML SINGLE DOSE SWSW PRN (12:45)
[2016-05-06] MEDS: FLUOXETINE HCL 20 MG CAPSULE PO SCH (13:43)
[2016-05-06 14:05] LABS: BASO # 0.1 x10^3/uL (0.0-0.2); BASO % 1 % (0-3); EOS % 1 % (0-3); HEMOGLOBIN 14.4 g/dL (12.0-15.5); LYMPH # 2.1 x10^3/uL (1.0-4.8); LYMPH % 27 % (24-48); MEAN CORPUSCULAR HEMOGLOBIN 30 pg (25-35); MEAN CORPUSCULAR HGB CONC 34 g/dL (31-37); MEAN CORPUSCULAR VOLUME 90 fL (79-100); MONO % 6 % (0-9); NEUT % 66 % (31-73); PLATELET COUNT 218 x10^3/uL (140-400); RED BLOOD COUNT 4.77 x10^6/uL (3.50-5.40); RED CELL DISTRIBUTION WIDTH 13.2 % (11.5-14.5); WHITE BLOOD COUNT 7.8 x10^3/uL (4.0-11.0)
[2016-05-06 14:31] LABS: ALBUMIN 3.4 g/dL (3.4-5.0); ALBUMIN/GLOBULIN RATIO 1.1 (1.0-1.7); GFR 57.1; POTASSIUM 3.9 mmol/L (3.5-5.1); TOTAL BILIRUBIN 0.5 mg/dL (0.2-1.0); TOTAL PROTEIN 6.5 g/dL (6.4-8.2)
[2016-05-06 15:09] VITALS: BP 121/57
[2016-05-06 19:00] VITALS: BP 110/59
[2016-05-06 23:00] VITALS: BP 114/65
[2016-05-07 03:00] VITALS: BP 123/69
[2016-05-07] MEDS: LORAZEPAM 1 MG TABLET. PO PRN (03:42)
[2016-05-07] MEDS: IV 1/2 NORMAL SALINE 1,000 ML IV SCH (06:02)
[2016-05-07 07:00] VITALS: BP 128/62
[2016-05-07] MEDS: FLUOXETINE HCL 20 MG CAPSULE PO SCH (07:34)
[2016-05-07] MEDS: PANTOPRAZOLE 40 MG TABLET. PO SCH (07:34)
[2016-05-07 11:00] VITALS: BP 123/75
--- NOTE | 2016-05-07 13:25 | PDOC ---
GI PROGRESS NOTES Date Date/Time DATE: 05/07/16 TIME: 13:22 Subjective Subjective Epigastric pain improving- PPI and anti anxiety meds seemed to help Objective Vitals Vital Signs Date Time Temp Pulse Resp B/P Pulse Ox O2 Delivery O2 Flow Rate FiO2 05/07/16 07:00 98.1 57 18 128/62 97 Room Air 98.1 05/07/16 03:00 97.5 61 16 123/69 98 Room Air 97.5 05/06/16 23:00 98.2 64 15 114/65 98 Room Air 98.2 05/06/16 20:15 Room Air 05/06/16 19:00 98.2 58 16 110/59 95 Room Air 98.2 05/06/16 15:09 99.9 66 18 121/57 94 Room Air 99.9 Labs Labs Laboratory Tests Test 05/06/16 13:40 White Blood Count 7.8x10^3/uL (4.0-11.0) Red Blood Count 4.77x10^6/uL (3.50-5.40) Hemoglobin 14.4g/dL (12.0-15.5) Hematocrit 43.0% (36.0-47.0) Mean Corpuscular Volume 90fL (79-100) Mean Corpuscular Hemoglobin 30pg (25-35) Mean Corpuscular Hemoglobin Concent 34g/dL (31-37) Red Cell Distribution Width 13.2% (11.5-14.5) Platelet Count 218x10^3/uL (140-400) Neutrophils (%) (Auto) 66% (31-73) Lymphocytes (%) (Auto) 27% (24-48) Monocytes (%) (Auto) 6% (0-9) Eosinophils (%) (Auto) 1% (0-3) Basophils (%) (Auto) 1% (0-3) Neutrophils # (Auto) 5.1x10^3uL (1.8-7.7) Lymphocytes # (Auto) 2.1x10^3/uL (1.0-4.8) Monocytes # (Auto) 0.4x10^3/uL (0.0-1.1) Eosinophils # (Auto) 0.0x10^3/uL (0.0-0.7) Basophils # (Auto) 0.1x10^3/uL (0.0-0.2) Sodium Level 145mmol/L (136-145) Potassium Level 3.9mmol/L (3.5-5.1) Chloride Level 109mmol/L (98-107) Carbon Dioxide Level 27mmol/L (21-32) Anion Gap 9 (6-14) Blood Urea Nitrogen 10mg/dL (7-20) Creatinine 1.0mg/dL (0.6-1.0) Estimated GFR (Cockcroft-Gault) 57.1 BUN/Creatinine Ratio 10 (6-20) Glucose Level 98mg/dL (70-99) Calcium Level 9.0mg/dL (8.5-10.1) Total Bilirubin 0.5mg/dL (0.2-1.0) Aspartate Amino Transf (AST/SGOT) 18U/L (15-37) Alanine Aminotransferase (ALT/SGPT) 38U/L (14-59) Alkaline Phosphatase 75U/L (46-116) Total Protein 6.5g/dL (6.4-8.2) Albumin 3.4g/dL (3.4-5.0) Albumin/Globulin Ratio 1.1 (1.0-1.7) Imaging Imaging PIPIDA normal Physical Exam Physical Exam chest- clear abd- soft nontender good bowel sounds Assessment Assessment Epigastric pain- from gastritis and duodenitis and made worse by anxiety- biopsies pending Problems: Plan Plan OK to advance diet and d/c soon continue PPI therapy for a few months- needs to f/u with Dr. Mcgee office for biopsy results and OV f/u as well since anxiety is an issue, would continue that therapy as well CAPO FU MD May 07, 2016 13:25
[2016-05-07] MEDS ORDERED: MAG355OR11 PO (13:40)
[2016-05-07] MEDS ORDERED: PANT40TA5 PO (13:40)
[2016-05-07] MEDS ORDERED: LORA0.5T96 PO (13:40)
== END 2016-05-07 15:30 | disposition home or self-care (01) | DRG 392 ==
LOC: ER 10:42 → 4 NORTH 13:50
PROVIDERS: ADMIT Internal Medicine; ATTEND Internal Medicine
PROC: 0DJ08ZZ Inspection of Upper Intestinal Tract, Via Natural or Artificial Opening Endoscopic (ICD-10-PCS; principal; 2016-05-05 10:30)
DX: K29.80 Duodenitis without bleeding (principal); K29.70 Gastritis, unspecified, without bleeding; F41.9 Anxiety disorder, unspecified; F32.9 Major depressive disorder, single episode, unspecified; K25.9 Gastric ulcer, unspecified as acute or chronic, without hemorrhage or perforation; D25.9 Leiomyoma of uterus, unspecified; K76.0 Fatty (change of) liver, not elsewhere classified; K81.1 Chronic cholecystitis; K31.84 Gastroparesis; K42.9 Umbilical hernia without obstruction or gangrene; T39.395A Adverse effect of other nonsteroidal anti-inflammatory drugs [NSAID], initial encounter; Z80.0 Family history of malignant neoplasm of digestive organs; Z98.51 Tubal ligation status
CPT/HCPCS: 36415; 74177; 78226; 80053; 81001; 83690; 85027; 87338; 96374; 96375; A9537; G0481; J0780; J2270; J2405; J2704; J2805; J3010; J7030; Q9967; 99285-25

== ENCOUNTER → 2019-01-14 | Outpatient (CLI) | payer OTHER ==
[~2019-01-14] MED LIST: CYCL10TA2 PO; FLUO20CA16 PO; LORA0.5T96 PO; MAG355OR11 PO; ORPH100T PO; OXYC1TAB15 PO; OXYC1TAB19 PO; PANT40TA77 PO
[2019-01-14 13:32] LABS: ALBUMIN 3.7 g/dL (3.4-5.0); CALCIUM 9.7 mg/dL (8.5-10.1); CREATININE 0.9 mg/dL (0.6-1.0); GFR 64.1; POTASSIUM 4.2 mmol/L (3.5-5.1)
[2019-01-14 13:33] LABS: BASO % 1 % (0-3); EOS # 0.1 x10^3/uL (0.0-0.7); EOS % 2 % (0-3); HEMATOCRIT 41.8 % (36.0-47.0); HEMOGLOBIN 14.4 g/dL (12.0-15.5); LYMPH # 1.9 x10^3/uL (1.0-4.8); LYMPH % 22 % (24-48); MEAN CORPUSCULAR HEMOGLOBIN 31 pg (25-35); MEAN CORPUSCULAR HGB CONC 35 g/dL (31-37); MEAN CORPUSCULAR VOLUME 90 fL (79-100); MONO # 0.6 x10^3/uL (0.0-1.1); MONO % 7 % (0-9); NEUT % 69 % (31-73); PLATELET COUNT 365 x10^3/uL (140-400); RED BLOOD COUNT 4.67 x10^6/uL (3.50-5.40); RED CELL DISTRIBUTION WIDTH 13.6 % (11.5-14.5); WHITE BLOOD COUNT 8.7 x10^3/uL (4.0-11.0)
--- NOTE | 2019-01-14 13:45 | RAD ---
EXAM: Chest, 2 views. HISTORY: Preoperative evaluation. COMPARISON: None. FINDINGS: 2 views of the chest are obtained. There is no infiltrate, pleural effusion or pneumothorax. The heart is normal in size. There is partial visualization of a displaced proximal left humeral fracture. IMPRESSION: 1. No acute pulmonary finding. 2. Partial visualization of a displaced proximal left humeral fracture. Electronically signed by: Thais Moreno MD (01/14/2019 1:42 PM) [facility]
--- NOTE | 2019-01-14 13:57 | EKG ---
[facility] [address] [place] [address] Test Date: 2019-01-14 Test Time: 13:54:04 Pat Name: CLARK MCMAHON Department: Room: Gender: F Punch Box Tender: BAKARI : 1960 Requested By: TERESA SHABAZZ Order Number: [id number] Reading MD: Nito Bower Measurements Intervals [place] Rate: 84 P: 42 DE: 114 QRS: 38 QRSD: 82 T: 24 QT: 376 QTc: 448 Interpretive Statements SINUS RHYTHM NORMAL ECG Electronically Signed On 01-14-2019 15:21:54 BUILDING ANALYST/SUPERVISOR by Nito Bower
== END | disposition home or self-care (01) ==
LOC: SURGPAT 12:10
PROVIDERS: ATTEND Orthopaedic Surgery
DX: Z01.818 Encounter for other preprocedural examination (principal); S42.292A Other displaced fracture of upper end of left humerus, initial encounter for closed fracture; Z91.040 Latex allergy status; X58.XXXA Exposure to other specified factors, initial encounter; Y93.89 Activity, other specified; Y92.89 Other specified places as the place of occurrence of the external cause; Y99.8 Other external cause status
CPT/HCPCS: 36415; 71046; 80048; 82040; 82306; 85025; 85610; 85651; 85730; 87641; 93005

== ENCOUNTER 2019-01-15 06:01 | Inpatient (IN) | payer OTHER ==
[2019-01-15] VITALS (8 sets, daily range): BP systolic 97–124; BP diastolic 49–73
[~2019-01-15] VITALS: Ht 157.5 cm; Wt 87.1 kg
[~2019-01-15 06:01] MED LIST changes: +ACETAMINOPHEN 500 MG TABLET PO PRN; +BUPIVACAINE-EPI 0.25%-1:200000 MPF 30 ML VIAL. INJ ONE; -CYCL10TA2 PO; +GABAPENTIN 300 MG CAPSULE. PO PRN; -OXYC1TAB19 PO; +TRANEXAMIC ACID 1,000 MG in IV NS 50ML -- 1ST BAG INJ ONE; +TV=100ml MORPHINE 5 MG, KETOROLAC 30 MG, ROPIVacaine 0.5% PF 60 ML, EPINEPH... INT ART ONE
[2019-01-15] MEDS ORDERED: ACETAMINOPHEN 500 MG TABLET PO ONE (06:30)
[2019-01-15] MEDS: MELOXICAM 7.5 MG TABLET PO PRN ×3 (06:57→14:25)
[2019-01-15] MEDS ORDERED: ceFAZolin 2GM PREMIX 2 GM/50 ML BAG IV ONE (07:00)
[2019-01-15] MEDS: IV RINGERS,LACTATED 1000ML 1,000 ML IV SCH ×2 (07:03→17:00)
[2019-01-15] MEDS ORDERED: fentaNYL PF VIAL 100 MCG/2 ML VIAL ONE ×2 (07:06→12:05)
[2019-01-15] MEDS ORDERED: ROPIVacaine 0.5% PF 20 ML VIAL. ONE ×2 (07:06)
[2019-01-15] MEDS ORDERED: DEXAMETHASONE SOD PHOS 20 MG/5 ML VIAL. ONE (07:07)
[2019-01-15] MEDS ORDERED: MIDAZOLAM HCL/PF 2 MG/2 ML VIAL. ONE (07:07)
[2019-01-15] MEDS ORDERED: PROPOFOL 20 ML IV ONE (07:20)
[2019-01-15] MEDS ORDERED: LIDOCAINE 2% PF 5 ML VIAL. ONE (07:20)
[2019-01-15] MEDS ORDERED: DEXAMETHASONE SOD PHOS 4 MG/ML VIAL ONE ×3 (07:20)
[2019-01-15] MEDS ORDERED: ROCURONIUM 100 MG/10 ML VIAL. ONE ×2 (07:22→08:27)
[2019-01-15] MEDS ORDERED: ONDANSETRON PF 4 MG/2 ML VIAL. ONE (07:23)
[2019-01-15] MEDS ORDERED: TRANEXAMIC ACID 1,000 MG in IV NS 50ML -- 2ND BAG INJ ONE (08:00)
[2019-01-15] MEDS ORDERED: ePHEDrine PF IN SALINE 50 MG/10 ML SYRINGE. IV ONE ×2 (08:15→10:30)
[2019-01-15] MEDS ORDERED: PHENYLEPHRINE in 0.9% NACL PF 1 MG/10 ML SYRINGE. IV ONE ×2 (08:15→10:30)
[2019-01-15] MEDS ORDERED: VANCOMYCIN 1 GM VIAL. ONE (09:44)
[2019-01-15] MEDS ORDERED: NEOSTIGMINE METHYLSULFATE 5 MG/5 ML SYRINGE. ONE (10:40)
[2019-01-15] MEDS ORDERED: GLYCOPYRROLATE 1 MG/5 ML VIAL. ONE (10:40)
[2019-01-15] MEDS ORDERED: IV RINGERS,LACTATED 1000ML 1,000 ML IV SCH (12:09)
[2019-01-15] MEDS ORDERED: PROCHLORPERAZINE 10 MG/2 ML VIAL. IV PRN (12:15)
[2019-01-15] MEDS ORDERED: MORPHINE SULFATE 2 MG/ML VIAL. IV PRN (12:15)
[2019-01-15] MEDS ORDERED: LIDOCAINE 1% PF 2 ML VIAL. ID PRN (12:15)
[2019-01-15] MEDS ORDERED: ONDANSETRON PF 4 MG/2 ML VIAL. IV PRN (12:15)
[2019-01-15] MEDS ORDERED: fentaNYL PF VIAL 100 MCG/2 ML VIAL IV PRN (12:15)
[2019-01-15] MEDS ORDERED: HYDROmorphone 2 MG/ML VIAL IV PRN ×2 (12:15→12:30)
[2019-01-15] MEDS ORDERED: IV NORMAL SALINE 1000ML BAG 1,000 ML IV SCH (12:29)
--- NOTE | 2019-01-15 12:29 | PDOC4 ---
Operative Note Operative Note Date of surgery: 01/15/2019 Preoperative diagnosis: Displaced head splitting fracture left proximal humerus Postoperative diagnosis: Same with preservation of tendon attachments to greater and lesser tuberosity fragments Operative procedure: Left reverse shoulder arthroplasty for fracture and biceps tenodesis Surgeon: Isidoro Assistants: Db Frost nurse practitioner, Hemanth HUNTER Anesthesia: Gen. 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 I had gone over with her that per indications for this injury a reverse shoulder arthroplasty is certainly the most recommended treatment. I explained the rationale for that in terms of the compromise of the head likelihood of potential collapse or blood supply issues and we covered the possibility of late and screw fixation if reduction was possible but that I am mostly sure that a reverse shoulder arthroplasty will be required due to this injury. I described the possibility of nonhealing instability nerve or blood vessel damage infection medical or other anesthetic complications among others the long rehabilitation process in either case even under the best of circumstances all her questions were answered she wishes to proceed with surgical evaluation and treatment. Operative text: Patient was identified procedure verified patient placed in the supine position on the operative table and Tmax head rest after adequate amounts of general anesthesia were administered all bony prominences were well-padded and the patient was placed in the semi-beachchair position and the left shoulder prepped and draped in standard sterile fashion. After timeout was performed patient procedure identified and verified a deltopectoral approach was carried out to the shoulder bleeding points controlled by electrocautery interval between the pectoralis and deltoid was exploited with the cephalic vein taken laterally the deltoid risks was released distally to avoid excessive tension and the head splitting fracture was not readily reducible the greater and lesser tuberosity fragments remained attached to adequate bony surfaces the head fragments were removed and the greater and lesser tuberosities were tagged with #5 Ethibond suture along with their rotator cuff attachments. The glenoid was exposed and denuded of articular cartilage and labrum a capsular release was performed inferiorly and as I was about to place a pin low inferior and the glenoid the Tmax head rest partially collapsed. Patient appeared unharmed in the breathing tube remained in place and after evaluating the situation we had a choice of undraping the patient with potential contamination and increased infection risk versus propping up the table carefully supporting the patient who remained well-padded and in a stable position and I elected to proceed with the procedure. Guidewire was placed reaming was carried out to good bleeding bone and was drilled superiorly to improve blood flow. A standard 15 mm trabecular metal pegged annoyed baseplate was impacted into place and fixation screws into the scapular spine and to the base of the coracoid were found to have excellent purchase and locked in place a 36 mm glenoid sphere was impacted in place to engage the Franco taper reaming was carried out up to a size 10 of the proximal humeral shaft and trial fitting carried out with a 10 mm trabecular metal trial with eventually a 12 mm buildup on the reverse shoulder component which gave good alignment stability and range of motion. Trial components were removed thorough irrigation carried out normal saline solution and pulse lavage and with Bactisure and later rinsed with 1 L of normal saline solution. A size 10 trabecular metal Darlyn humeral component of the reverse shoulder system was cemented in place in proper version with excess cement being removed to allow ingrowth to the trabecular metal of the tuberosity fragments which were hollowed out for good apposition. A 12 mm buildup was carried out with a 9 mm spacer and 3 mm standard polyethylene liner which was impacted into place to engage the Franco taper. The shoulder was reduced and found to have excellent stability range of motion the tuberosity fragments were then reapposed with #5 Ethibond suture in an excellent fashion and remaining portion of the rotator cuff likewis e with #5 Ethibond. The biceps tenodesis was previously performed in the bicipital groove and pectoralis superior incision for exposure was likewise repaired with #5 Ethibond both instances. Thorough irrigation again carried out with normal saline solution and 1 g Vicryl bison was placed throughout the joint subcutaneous closure with buried Vicryl suture subcuticular 3-0 strata fix Monocryl was run and sterile dressings were applied. Patient was lifted over to the recovery room bed without changing the position of the operating room bed or head rest to avoid any additional movement. Patient was returned to recovery room in stable condition having tolerated procedure well TERESA SHABAZZ MD Jan 15, 2019 12:29
[2019-01-15] MEDS ORDERED: DEXTROSE 50% 25 GM / 50ML DISP.SYRIN. IV PRN (12:30)
[2019-01-15] MEDS ORDERED: NALOXONE 0.4 MG/ML VIAL. IV PRN (12:30)
[2019-01-15] MEDS ORDERED: oxyCODONE/APAP 5/325 1 TAB TABLET PO PRN (12:30)
[2019-01-15] MEDS ORDERED: ZOLPIDEM 5 MG TABLET. PO PRN (12:30)
[2019-01-15] MEDS ORDERED: PROCHLORPERAZINE 5 MG TABLET. PO PRN (12:30)
[2019-01-15] MEDS ORDERED: 0.9 % SODIUM CHLORIDE 10 ML DISP.SYRIN. IV PRN (12:30)
[2019-01-15] MEDS ORDERED: CALCIUM CARBONATE 500 MG TAB.CHEW PO PRN (12:30)
[2019-01-15] MEDS ORDERED: ACETAMINOPHEN 325 MG TABLET. PO PRN (12:30)
[2019-01-15] MEDS ORDERED: traMADol 50 MG TABLET PO PRN ×2 (12:30)
[2019-01-15] MEDS ORDERED: HYDROcodone/APAP 7.5/325MG 1 TAB TABLET PO PRN (12:30)
--- NOTE | 2019-01-15 13:16 | RAD ---
SHOULDER 2+V LEFT 01/15/2019 12:29 PM INDICATION: Postoperative COMPARISON: None available. TECHNIQUE: 2 views of the left shoulder are provided. FINDINGS/ IMPRESSION: Left total shoulder arthroplasty is identified with components in expected alignment. Fracture fragments of the proximal humerus are noted. Acromioclavicular joint is well aligned. Electronically signed by: Henny Pitts MD (01/15/2019 1:12 PM) [id number]
[2019-01-15] MEDS: FLUoxetine HCL 20 MG CAPSULE PO SCH (14:14)
[2019-01-15] MEDS: fentaNYL PF VIAL 100 MCG/2 ML VIAL IV PRN ×2 (14:16→19:02)
--- NOTE | 2019-01-15 16:53 | PDOC ---
PROGRESS NOTES Subjective Subjective Problems overnight: Postop has minimal complaints her fingers are awake the left thumb is still little bit numb pain is well-controlled Objective Vital Signs Vital Signs Date Time Temp Pulse Resp B/P (MAP) Pulse Ox O2 Delivery O2 Flow Rate FiO2 01/15/19 14:40 91 112/73 (86) 93 Nasal Cannula 2.0 01/15/19 13:10 98.2 16 98.2 Physical Exam Dressing clean dry intact paresthesia to the left thumb but can move all the fingers grasp and pinch grasp without difficulty Imaging Postop x-rays show excellent alignment including tuberosity fragments of a reverse shoulder arthroplasty Assessment Assessment POD# 0 reverse shoulder arthroplasty for fracture Plan Plan of Care I went over with her my intention to do gentle pendulum exercises gentle stretching below shoulder level and fine motor use of her arm to protect for tuberosity healing Likely will go with family for a couple weeks to [facility] and no physical therapy in the interim until her follow-up on return at which time I plan to start physical therapy at that point I did explain the difficulty with the operating room bed that she did not appear to be injured she appears to have no problems from it at present TERESA SHABAZZ MD Jan 15, 2019 16:53
[2019-01-15] MEDS: FERROUS SULFATE 325 MG TABLET. PO SCH (17:26)
[2019-01-15] MEDS: CYCLOBENZAPRINE 10 MG TABLET. PO SCH (21:00)
[2019-01-15] MEDS: CELECOXIB 100 MG CAPSULE. PO SCH (21:00)
--- NOTE | 2019-01-15 21:00 | NUR ---
The WOW during medication administration. Meds entered w/o scanning.
[2019-01-15] MEDS: IV DEXTROSE 5 %-0.45 % NACL 1,000 ML IV SCH (22:29)
[2019-01-15] MEDS: HYDROcodone/APAP 10/325 1 TAB TABLET PO PRN (23:25)
[2019-01-16] MEDS: fentaNYL PF VIAL 100 MCG/2 ML VIAL IV PRN ×3 (00:11→08:48)
[2019-01-16] MEDS: IV DEXTROSE 5 %-0.45 % NACL 1,000 ML IV SCH (00:12)
[2019-01-16 03:00] VITALS: BP 97/65
[2019-01-16] MEDS: HYDROcodone/APAP 10/325 1 TAB TABLET PO PRN (05:45)
[2019-01-16] MEDS ORDERED: MAGNESIUM HYDROXIDE 2,400 MG/30 ML ORAL.SUSP. PO PRN (06:00)
--- NOTE | 2019-01-16 07:00 | NUR ---
Walking rounds, change of shift: pt sleeping in bed on right side. Cont. monitor.
[2019-01-16 07:10] VITALS: BP 96/60
[2019-01-16 07:46] LABS: HEMATOCRIT 31.2 % (36.0-47.0); HEMOGLOBIN 10.7 g/dL (12.0-15.5)
[2019-01-16] MEDS: FLUoxetine HCL 20 MG CAPSULE PO SCH (07:53)
[2019-01-16] MEDS: CELECOXIB 100 MG CAPSULE. PO SCH ×2 (07:53→20:31)
[2019-01-16] MEDS: FERROUS SULFATE 325 MG TABLET. PO SCH ×2 (07:54→17:24)
[2019-01-16] MEDS: SENNOSIDES/DOCUSATE 8.6/50MG TABLET. PO SCH (07:54)
[2019-01-16] MEDS: MULTIVITAMIN with MINERAL TABLET. PO SCH (07:54)
[2019-01-16] MEDS: CYCLOBENZAPRINE 10 MG TABLET. PO SCH ×3 (07:54→20:31)
[2019-01-16] MEDS: oxyCODONE/APAP 7.5/325 1 TAB TABLET PO PRN ×5 (07:54→20:31)
--- NOTE | 2019-01-16 07:54 | NUR ---
C/O pain wanting pain med. State pain is at 7 on pain scale 0-10. Pt received lortab at 0545. Discussed about pain medications and about trying something else. Started on Percocet and placed new ice pack to left shoulder. Cont. monitor.
--- NOTE | 2019-01-16 08:50 | NUR ---
Pt still c/o pain. Rates pain "7". Reposition arm on DonJoy sling. Fentanyl IV given. Resting in bed. Refuses to do any am cares at this time. Sister and son at bedside.
--- NOTE | 2019-01-16 11:04 | NUR ---
Pt rested fairly well. Awakened and ambulated to bathroom with standby assist. Return to bed. States pain level of "6". Percocet po given.
[2019-01-16] MEDS ORDERED: BISACODYL 10 MG SUPP.RECT. PR PRN (16:00)
--- NOTE | 2019-01-16 16:30 | NUR ---
Pt took long nap. Awaken and walked to bathroom with steady gait. Return to chair. Feeling better. Cont. monitor.
--- NOTE | 2019-01-16 17:00 | NUR ---
Ambulated around the unit with her son. Tolerated it well. Cont. monitor.
[2019-01-16 18:39] VITALS: BP 110/61
[2019-01-17 04:40] VITALS: BP 121/62
[2019-01-17] MEDS: oxyCODONE/APAP 7.5/325 1 TAB TABLET PO PRN ×3 (04:40→13:09)
[2019-01-17] MEDS: FERROUS SULFATE 325 MG TABLET. PO SCH (08:43)
[2019-01-17] MEDS: SENNOSIDES/DOCUSATE 8.6/50MG TABLET. PO SCH (08:43)
[2019-01-17] MEDS: MULTIVITAMIN with MINERAL TABLET. PO SCH (08:43)
[2019-01-17] MEDS: CYCLOBENZAPRINE 10 MG TABLET. PO SCH ×2 (08:43→13:09)
[2019-01-17] MEDS: CELECOXIB 100 MG CAPSULE. PO SCH (08:43)
[2019-01-17] MEDS: FLUoxetine HCL 20 MG CAPSULE PO SCH (08:44)
[2019-01-17 09:32] LABS: HEMATOCRIT 30.6 % (36.0-47.0); HEMOGLOBIN 10.4 g/dL (12.0-15.5)
--- NOTE | 2019-01-17 10:08 | PDOC ---
PROGRESS NOTES Subjective Subjective Problems overnight: Seen by Mr. Diane yesterday and had a bunch more pain now much better controlled this morning Objective Vital Signs Vital Signs Date Time Temp Pulse Resp B/P (MAP) Pulse Ox O2 Delivery O2 Flow Rate FiO2 01/17/19 08:43 20 01/17/19 05:40 Room Air 01/17/19 04:40 98.6 73 121/62 (81) 96 98.6 01/16/19 07:10 2.0 Physical Exam Shoulder dressing changed to a aqua cell dressing distal neurovascular status intact. Has some trapezial and parascapular crampy feeling Labs Laboratory Tests Test 01/16/19 07:25 01/17/19 09:16 Hemoglobin 10.7 g/dL (12.0-15.5) 10.4 g/dL (12.0-15.5) Hematocrit 31.2 % (36.0-47.0) 30.6 % (36.0-47.0) Mean Corpuscular Hemoglobin Concent 34 g/dL (31-37) 34 g/dL (31-37) Laboratory Tests Test 01/17/19 09:16 Hemoglobin 10.4 g/dL (12.0-15.5) Hematocrit 30.6 % (36.0-47.0) Mean Corpuscular Hemoglobin Concent 34 g/dL (31-37) Assessment Assessment POD# left reverse shoulder arthroplasty for fracture Plan Plan of Care Discharge to home with her sister Plan only pendulum exercises and gentle stretches on her own next 2 weeks until follow-up no formal physical therapy Follow-up 2 weeks TERESA Cormier MD Jan 17, 2019 10:08
[2019-01-17] MEDS ORDERED: CYCL10TA2 PO (11:25)
[2019-01-17] MEDS ORDERED: OXYC1TAB19 PO (11:26)
[2019-01-17 13:45] VITALS: BP 117/75
--- NOTE | 2019-01-17 15:07 | PATHOLOGY ---
[facility] Accession Number: [id number] . 01 Material submitted: . humerus - LEFT HUMERAL HEAD. Modifiers: left, head . 01 Clinical history: . Left proximal humerus fracture . 02 Diagnosis: Segments of bone with focal attached articular cartilage and soft tissue, reverse left total shoulder arthroplasty: - Focal fragmentation of bony trabeculae, recent intertrabecular hemorrhage, and reactive fibrosis consistent with fracture. - Degenerative arthritis. (JPM:michael; 01/17/2019) QMS 01/17/2019 1401 Local . 02 Comment: There is no evidence of malignancy. . 02 Electronically signed: . Sidney De Los Santos MD, Pathologist NPI- [id number] . 01 Gross description: . The specimen is received in formalin labeled "Arianna, Latrice, left femoral head". The specimen source is confirmed with the provider as "left humeral head". Received is a fragmented humeral head measuring 6.3 x 5.2 x 2.6 cm in greatest dimensions admixed with scant soft tissue. The two largest humeral head fragments display irregularly contoured, partially granular and yellow-marshall to dark brown articular surfaces, with no gross evidence of eburnation. The bone margins are jagged and excessively hemorrhagic in appearance, grossly consistent with a fracture site. Serial sectioning through the two largest fragments reveals yellow-marshall to bright red, partially hemorrhagic cut surfaces underlying the articular cartilage, with extensive dark brown hemorrhage noted at the bone margins. The two largest humeral head fragments are submitted representatively in cassette A1, following decalcification. The remaining bone and soft tissue fragments are submitted representatively in cassette A2, following decalcification. (DAC; 01/16/2019) XDC/XDC 01/17/2019 0834 Local . 02 Pathologist provided ICD-10: S72.092A, M16.12 . 02 CPT . 487850, 975319 Specimen Comment: A courtesy copy of this report has been sent to [phone], [phone] Specimen Comment: 0 Specimen Comment: Report sent to / DR MICHAEL Performed at: 01 [facility] [address], [place] [id number] MD Avila Yap MD Phone: [phone] Performed at: 02 [facility] [address] [place], [place] [id number] MD Sidney De Los Santos MD Phone: [phone]
--- NOTE | 2019-01-17 16:18 | NUR ---
reviewed written discharge instructions with patient sister and son. reviewed new medications and side effects, simple exercises for fingers wrist elbow and restrictions to activities of daily living. scripts given earlier and were filled. polar ice machine arrived and taken with them . instructed not to change dressing follow up with Dr. Chaudhry in 2 weeks. verbalized understand ing and questions answered. dismissed to home
--- NOTE | 2019-01-21 07:35 | DS ---
DATE OF DISCHARGE: 01/17/2019 PRINCIPAL DIAGNOSIS: Comminuted head splitting proximal humerus fracture, left. PROCEDURE: Left reverse shoulder arthroplasty for treatment of a comminuted head splitting proximal humerus fracture. DISPOSITION: Home. She is actually going to go to her sister's on the [place] area for the first couple of weeks. ACTIVITY: Activity level is pendulum exercises, gentle fine motor use with the arm at side, gentle stretching on her own that I instructed her with and reviewed with physical therapy here, maintaining her motion below shoulder level. Immobilizer as necessary for comfort. Maintain Aquacel dressing unless saturated. Call for any redness, drainage, fever, chills, uncontrolled pain or other problems. DISCHARGE INSTRUCTIONS: Follow up with Dr. Chaudhry in approximately two weeks. No use of the left arm in the interim in terms of any work restrictions. BRIEF DESCRIPTION OF HOSPITAL COURSE: The patient underwent reverse total shoulder arthroplasty for a comminuted head splitting proximal humerus fracture and on postop day 0 actually did well in terms of pain control with her interscalene block. She had had return of her sensation later on in the day, but aside from some mild paresthesia in the thumb area. On postop day #1 was quite painful after the block had fully worn off and different pain medications were employed, both a combination of IV and orally. She had undergone her usual postoperative course of prophylactic antibiotics and continued to undergo pain control, light physical therapy, ambulated well and was discharged home in stable condition on 01/17/2019. TERESA CHAUDHRY MD DR: RAPHAEL/joseph JOB#: [id number] / [id number]
== END 2019-01-17 16:10 | disposition home or self-care (01) | DRG 483 ==
LOC: OPSVCIP 06:01 → 4 SOUTHEST 13:00
PROVIDERS: ADMIT Orthopaedic Surgery; ATTEND Orthopaedic Surgery
PROC: 0RRK00Z Replacement of Left Shoulder Joint with Reverse Ball and Socket Synthetic Substitute, Open Approach (ICD-10-PCS; principal; 2019-01-15 07:30)
DX: S42.292A Other displaced fracture of upper end of left humerus, initial encounter for closed fracture (principal); Z79.899 Other long term (current) drug therapy; W01.0XXA Fall on same level from slipping, tripping and stumbling without subsequent striking against object, initial encounter; Y93.89 Activity, other specified; Y92.89 Other specified places as the place of occurrence of the external cause; Y99.8 Other external cause status; Z91.048 Other nonmedicinal substance allergy status; Z91.040 Latex allergy status
CPT/HCPCS: 36415; 73030; 85014; 85018; 86850; 86900; 86901; 88305; 88311; A7015; C1713; C1776; J0171; J0696; J1100; J1885; J2001; J2250; J2270; J2370; J2405; J2704; J2710; J2795; J3010; J3370; J3490; J7030; J7120; 97110; 97116; 97530; 97535; C1769; G0378